=== PATIENT | female | born 1960 | race Caucasian/White ===

== ENCOUNTER 2021-03-20 08:28 | Day surgery (SDC) | payer OTHER, SELFPAY ==
[2021-03-13 14:29] VITALS: BMI 33.2
--- NOTE | 2021-03-19 09:26 | HO.ANESPROP2 ---
Documented by User: Ángela Salcido NP 03/19/21 09:26 HPI - Anesthesia Eval Consult details Narrative: 60yo F for Colonoscopy PMFSH Past Medical History Medical History HTN (hypertension) Surgical History Surgical History H/O colonoscopy History of carpal tunnel release Hx of laparoscopy Social History Social History Patient Tobacco Use Status: Former Tobacco user Use of substances other than those prescribed or required for medical reasons: No Advance Directives: No Advance Directives Information Provided: Yes (informational brochure mailed) Advance Directives on File: No Meds Allergies Allergy/AdvReac Type Severity Reaction Status Date / Time bee pollen [BEE STINGS] Allergy Intermediate SWELLING Verified 03/13/21 14:50 Home Medications Medication Instructions Recorded Confirmed Last Taken Type magnesium oxide 400 mg PO DAILY 03/13/21 03/13/21 Unknown History metoprolol tartrate 50 mg tablet 50 mg PO DAILY 03/13/21 03/13/21 03/20/21 History multivitamin 1 tab PO DAILY 03/13/21 03/13/21 Unknown History omeprazole 20 mg tablet,delayed 20 mg PO DAILY 03/13/21 03/13/21 03/20/21 History release potassium 75 mg tablet 75 mg PO DAILY 03/13/21 03/13/21 Unknown History turmeric 400 mg capsule 400 mg PO DAILY 03/13/21 03/13/21 Unknown History Exam Exam Date and Time: March 19, 2021 09 Height,Weight and Vital Signs: Height 5 ft 6.5 in Weight 94.801 kg Assessment and Plan Assessment Anesthesia Assessment: Chart Reviewed Documented by User: Michelle Arias MD 03/20/21 10:15 PMFSH Active Problems Active Problems: HTN GERD. Controlled on meds Past Medical History Medical History HTN (hypertension) Family History Family history of problems with anesthesia: No Surgical History Surgical History H/O colonoscopy History of carpal tunnel release Hx of laparoscopy History of Problems with Anesthesia: No Social History Social History Patient Tobacco Use Status: Former Tobacco user Use of substances other than those prescribed or required for medical reasons: No Advance Directives: No Advance Directives Information Provided: Yes (informational brochure mailed) Advance Directives on File: No Meds Allergies Allergy/AdvReac Type Severity Reaction Status Date / Time bee pollen [BEE STINGS] Allergy Intermediate SWELLING Verified 03/13/21 14:50 Home Medications Medication Instructions Recorded Confirmed Last Taken Type magnesium oxide 400 mg PO DAILY 03/13/21 03/13/21 Unknown History metoprolol tartrate 50 mg tablet 50 mg PO DAILY 03/13/21 03/13/21 03/20/21 History multivitamin 1 tab PO DAILY 03/13/21 03/13/21 Unknown History omeprazole 20 mg tablet,delayed 20 mg PO DAILY 03/13/21 03/13/21 03/20/21 History release potassium 75 mg tablet 75 mg PO DAILY 03/13/21 03/13/21 Unknown History turmeric 400 mg capsule 400 mg PO DAILY 03/13/21 03/13/21 Unknown History Exam Height,Weight and Vital Signs: Height 5 ft 6.5 in Weight 94.801 kg Vital Signs Temp Pulse Resp BP Pulse Ox 03/20/21 09:33 98.1 F 71 16 140/58 H 98 Airway Mallampati Class: I TM Dist: >3cm Neck ROM: Full Loose/Missing/Broken Teeth: No Heart: RRR Lungs: CTAB Assessment and Plan Assessment Anesthesia Assessment: Anesthesia Plan Discussed Final Anesthetic Review Family History of Problems with Anesthesia: No History of Problems with Anesthesia: No NPO: Yes ASA Class: II Final Preanesthetic Review: No Changes in Pt Med Stat, Meds/Allgs Chart Reviewed, Consent Obtained/Reviewed and Anes Risks/Benef Reviewed Patient Risk: Low Procedure Risk: Low Assessment/Block/Sedation in SS: Assess/Block/Sedation-SS Anesthetic Plan Anesthetic Plan: MAC: Disposition: Standard PACU
[2021-03-20 09:33] VITALS: BP 140/58; PULSE 71; RESP 16; TEMP 36.7; O2SAT 98
[2021-03-20] MEDS: Lactated Ringers 1,000 ML 100 ML IVCONT (09:34)
--- NOTE | 2021-03-20 10:07 | MHC.SHP ---
Pre-Procedural Eval Section A Date of Service: 03/20/21 The patient is an INPATIENT: No Changes since office visit: No Cold of Flu in the past 2 weeks, No New Medical Problems, No Changes in Medication and No Patient answered all questions The History & Physical has been completed within 30 days and I have reviewed it.: Yes Section B Chief Complaint: screening Allergies: Allergies Allergy/AdvReac Type Severity Reaction Status Date / Time bee pollen [BEE STINGS] Allergy Intermediate SWELLING Verified 03/13/21 14:50 Plan I have reviewed the history and physical and performed a pertinent physical examination on my patient. No changes have occurred unless specified.
--- NOTE | 2021-03-20 10:39 | PM.OP ---
Brief Operative Note Date of Service: 03/20/21 Pre-op diagnosis: screening Post-op diagnosis: same Procedure: colonoscpy Surgeon: Lauro Villatoro Anesthesia: MAC Estimated blood loss (mL): 0 Pathology: none sent Condition: stable Disposition: PACU
[2021-03-20 10:40] VITALS: BP 115/72; PULSE 79; RESP 16; TEMP 36.5; O2SAT 97
[2021-03-20 10:54] VITALS: BP 124/79; PULSE 79; RESP 16; TEMP 36.5; O2SAT 99
--- NOTE | 2021-03-20 21:09 | OP_ITS ---
SURGEON: Lauro Villatoro MD INDICATIONS: Colon cancer screening and prior history of adenomatous colon polyps. PREOPERATIVE DIAGNOSIS: POSTOPERATIVE DIAGNOSIS: PROCEDURE PERFORMED: Colonoscopy to terminal ileum. ESTIMATED BLOOD LOSS: COMPLICATIONS: ANESTHESIA: Monitored anesthesia care. ASSISTANTS: SPECIMENS: DESCRIPTION OF PROCEDURE: History and physical performed. The risks and benefits of the procedure were explained to the patient. Informed consent was obtained. The patient was placed in a left lateral decubitus position. A digital rectal exam was performed and was found to be normal. The Olympus pediatric video colonoscope was introduced into the rectum and advanced to the cecum without difficulty. The cecum was identified by transillumination, palpation, and identification of ileocecal valve. Examination was performed. The scope was removed. She tolerated the procedure well and was returned to recovery room in stable condition. FINDINGS: The terminal ileum was normal. The visualized colonic mucosa was within normal limits without evidence of masses or ulcers. No polyps were identified. The quality of prep was good. There was mild sigmoid diverticulosis. Retroflexed examination showed some small internal hemorrhoids and hypertrophic anal papillae. IMPRESSION: Negative screening colonoscopy. RECOMMENDATIONS: 1. Follow up as needed. 2. Repeat colonoscopy is recommended in 10 years. MD NUNO Rebolledo/DMITRY / [id number]
== END 2021-03-20 12:00 | disposition home or self-care (01) ==
PROVIDERS: PCP Nurse Practitioner Family; Visit Provider Internal Medicine Gastroenterology
PROC: 0DJD8ZZ Inspection of Lower Intestinal Tract, Via Natural or Artificial Opening Endoscopic (ICD-10-PCS; CPT 45378; principal; 2021-03-20 10:20)
DX: Z12.11 Encounter for screening for malignant neoplasm of colon (principal); Z86.010 Personal history of colon polyps; K57.30 Diverticulosis of large intestine without perforation or abscess without bleeding; K64.8 Other hemorrhoids; K62.89 Other specified diseases of anus and rectum; I10 Essential (primary) hypertension; Z79.899 Other long term (current) drug therapy; Z90.49 Acquired absence of other specified parts of digestive tract; Z87.891 Personal history of nicotine dependence
CPT/HCPCS: 45378

== ENCOUNTER 2023-11-08 09:11 | Outpatient (AMB) | payer OTHER, SELFPAY ==
--- NOTE | 2023-11-08 09:18 | A.OFFPC_ITS ---
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 c/o tomaseng bitten by a bee and she is allergic to it and would like to have the doctor take a look at it. she would also want refills on her meds and epi pen. 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: No Is last menstrual period known: No Post menopausal: No Patient : No Allergies bee pollen [BEE STINGS] Allergy (Intermediate, Verified 11/08/23 09:37) SWELLING Medication List - Last Reconciled 11/08/23 by Nataliya Aragon CNP glipizide 5 mg PO DAILY magnesium oxide 400 mg PO DAILY metformin 500 mg PO DAILY metoprolol tartrate 50 mg PO DAILY multivitamin 1 tab PO DAILY omega-3 fatty acids-fish oil 360-1,200 mg (Fish Oil) 1 cap PO DAILY omeprazole 20 mg PO DAILY potassium 75 mg PO DAILY turmeric 400 mg PO DAILY Tobacco use date assessed: 11/08/23 Dental Screening Dental Screen Date: 11/08/23 Did you have a dental visit in the last 12 months?: Yes Did you have a dental problem in the last 6 months where you did not have access to dental care?: No Was dental information given to patient?: Patient has dentist HPI HPI Comments History of Present Illness Details New patient Prior PCP:?Julissa Tao [facility], [place] Dr. Erica Fernandez Last office visit/CPE: About 4 months Last routine labs: Almost a year ago Acute issue(s): Hypertension -She is on metoprolol tartrate 50 mg michelle ly Diabetes -She is on glipizide 5 mg daily and metf ormin 500 mg daily GERD -She is on omeprazole 20 mg daily She notes that she takes Potassium 75mg daily and magnesium oxide 400mg daily for frequent lower leg cramps, left more frequent than right She admits to making healthy dietary changes, walks frequently for exercise, and generally sleeps well Last A1c was 6.4 in 01/2023 PMHx: Hypertension, diabetes, GERD, obesity, PVD SurgHx: h/o laparoscopy for endometriosis, h/o carpal tunnel release surgery FHx: None SocHx: Former smoker. Drinks alcohol occasionally. No recreational drugs Last colonoscopy was at [facility] on 03/20/2021: normal. Recommended follow-up in 10 years Last mammogram was at [facility] almost a year ago: normal. She will follow up for an annual mammogram She notes that she has never been vaccinated for shingles She received one PNA vaccine in 01/2023 She states that her last pap smear test was with [facility] chemical inspector in 08/2022: normal She notes that her last diabetic eye exam was almost 2 years ago She notes that she was followed by a vascular specialist for PVD about 3 years a go [facility] Medical History (Updated 11/08/23 @ 14:33 by Nataliya Aragon CNP) Diabetes HTN (hypertension) Surgical History Hx of laparoscopy History of carpal tunnel release H/O colonoscopy Family History (Updated 11/08/23 @ 09:46 by Mimi Mckeon) Daughter Alcohol abuse Substance abuse Mother High blood pressure Diabetes Cardiovascular disease Sister High cholesterol Paternal Grandfather Diabetes Father Cardiovascular disease Social History Housing: House Patient Tobacco Use Status: Former Tobacco user e-Cigarette/Vaping Use: Never Used Second Hand Smoke Exposure: No service: No Current occupational status: employed 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 Current occupational exposures/hazards: No Cognitive needs: No Hearing needs: No Vision needs: Yes Questionnaire PHQ-9 Over the last 2 weeks, how often have you been bothered by any of the following problems? 1. Little interest or pleasure in doing things: not at all 2. Feeling down, depressed, or hopeless: not at all 3. Trouble falling or staying asleep, or sleeping too much: several days 4. Feeling tired or having little energy: not at all 5. Poor appetite or overeating: not at all 6. Feeling bad about yourself - or that you are a failure or have let yourself or your family down: not at all 7. Trouble concentrating on things, such as reading the newspaper or watching television: not at all 8. Moving or speaking so slowly that other people could have noticed. Or the opposite - being so fidgety or restless that you have been moving around a lot more than usual: not at all 9. Thoughts that you would be better off or of hurting yourself in some way: not at all Total score: 1 Depression Screening Interpretation: Negative Depression Screening Done: Yes 49499 - PHQ-9 Billing: Yes Source: Developed by Drs. Danis Laguna, Nicole Mack, Asim De Jesus and colleagues, with an educational yenni from [employer]. Thrive Questionnaire Date Thrive assessed: 11/08/23 I am a: Patient What is your living situation today?: I have a steady place to live Within the past 12 months, did the food you bought not last and you didn't have the money to get more?: Never true Within the past 12 months, did you worry whether your food would run out before you got money to buy more?: Never true Do you have trouble paying for medicines?: No Do you have trouble getting transportation to medical appointments?: No Do you have trouble paying your heating and electricity bill?: No Do you have trouble taking care of your child, family member or friend?: No Do you have trouble with day-to-day activities such as bathing, preparing meals, shopping, managing finances, etc.?: No Are you currently unemployed and looking for a job?: No Are you interested in more education?: Yes (about diabetes) Please select the resources that you would like help with: Education (about diabetes) Currently or been in a relationship where the following occur: No concerns reported THRIVE Score: 0 AUDIT C Alcohol Use Questionnaire (AUDIT-C) 1. How often do you have a drink containing alcohol?: Monthly or less 2. How many drinks containing alcohol do you have on a typical day when you are drinking?: 1 or 2 3. How often do you have six or more drinks on one occasion?: Never Total Score: 1 JAYME-7 AMB Questionnaire JAYME-7 Date JAYME - 7 assessed: 11/08/23 Feeling nervous, anxious, or on edge: 0 = Not at all Not being able to stop or control worryin = Not at all Worrying too much about different things: 0 = Not at all Trouble relaxin = Not at all Being so restless that it is hard to sit still: 0 = Not at all Becoming easily annoyed or irritable: 0 = Not at all Feeling afraid as if something awful might happen: 0 = Not at all Total JAYME-7 score (0-4 normal; 5-9 mild; 10-14 moderate; 15-21 severe): 0 Source: Developed by Drs. Danis Laguna, Nicole Mack, Asim De Jesus and colleagues, with an educational yenni from [employer]. JAYME-7 Assessment Billing JAYME-7 Assessment Tool: JAYME-7 Assessment 21195 Review of Systems Const Details: Denies chills, Denies fatigue, Denies fever(s), Denies headache(s) and Denies weakness HEENT Denies change in vision, Denies dizziness, Denies headache(s), Denies hearing loss, Denies nasal congestion, Denies sinus pain, Denies sinus pressure and Denies sore throat Card Denies chest pain, Denies lightheadedness, Denies dyspnea and Denies other (palpitations) Resp Denies cough, Denies dyspnea and Denies wheezing GI Denies abdominal pain, Denies melena, Denies hematochezia, Denies change in bowel habits, Denies dyspepsia and Denies nausea Denies hematuria and Denies dysuria Musc Denies abnormal gait, Denies myalgias, Denies arthralgias, Denies numbness and Denies tingling Skin/Breast Denies rash, Denies unusual bruising and Denies wounds Neuro Denies abnormal gait, Denies dizziness, Denies headache(s), Denies memory loss, Denies numbness, Denies Sensory deficit (Neuro), Denies tingling and Denies weakness Psych Denies anxiety, Denies depression and Denies memory loss Endo Denies cold intolerance, Denies fatigue, Denies heat intolerance, Denies polydipsia and Denies polyuria Bruce/Lymph Denies easy bleeding and Denies easy bruising Aller/Immun Denies wheezing Physical exam (Primary Care) Vital Signs: Last Vital Signs Temp 97.7 F 11/08/23 09:33 Pulse 73 11/08/23 09:33 Resp 16 11/08/23 09:33 BP 128/78 11/08/23 09:33 Pulse Ox 95 11/08/23 09:33 Oxygen Delivery Method Room Air 11/08/23 09:33 BMI result Body Mass Index 37.5 Tobacco/Smoking Status: Tobacco use Status Tobacco use date assessed 11/08/23 11/08/23 09:33 Patient Tobacco Use Status Former Tobacco user 11/08/23 09:20 e-Cigarette/Vaping Use Never Used 11/08/23 09:33 PHQ-9: PHQ-9 Score PHQ-9: Total score 1 11/08/23 09:44 Depression Screening Interpretation: Negative Thrive Assessment: Date of Thrive Assessment Date Thrive assessed 11/08/23 11/08/23 09:40 Currently or been in a relationship where the following occur: No concerns reported Const Other: General: no acute distress, well developed, alert and awake Nutritional Appearance: well nourished Orientation/consciousness: patient oriented x3 HENMT Head: Yes normocephalic and Yes atraumatic Ears: hearing grossly normal bilaterally and TM's normal bilaterally General nose exam: Normal external nose present and Normal nares present Mouth: Normal oral and palatal mucosa present and moist mucous membranes Teeth and gingiva: dentition normal Throat: Yes oropharynx normal Eyes Pupils: Equal, round and reactive pupils present and Pupil accommodation reflex normal EOM: EOMs intact bilaterally Neck Neck: Yes normal visual inspection, Yes no lymphadenopathy and Yes trachea midline Thyroid: Thyroid normal Carotids: no bruits Lymphatic: no lymphadenopathy noted Chest Chest palpation & inspection: normal inspection of the chest Resp Effort & Inspection: normal respiratory effort Auscultation: clear to auscultation bilaterally Cardio Rate: regular rate Rhythm: regular rhythm Heart sounds: S1 normal heart sound present, S2 normal heart sound present, no gallops, no murmurs and no rubs Bruits: no abdominal aortic bruits and no carotid bruits GI Palpation (GI): No Abdominal aortic bruit present, Soft to palpation, nontender, No hepatosplenomegaly present and No Rebound tenderness present Auscultation: normal bowel sounds General: Yes no CVA tenderness Back/Spine/Pelvis Back: no CVA tenderness Cervical Spine: cervical ROM normal and No Cervical spine tenderness Thoracic/Lumbar Spine: thoraco-lumbar ROM normal, No pain with thoraco-lumbar ROM, No thoracic spinal tenderness and No lumbar spinal tenderness Skin General: warm and dry. Normal skin color. Normal skin turgor Lesions: no lesions Rashes: no rashes Trauma: no lacerations or abrasions Wounds: no wounds Nails: normal Neuro General: patient oriented x3, gait normal and CN's II-XI intact bilaterally Cranial nerves: Yes Equal, round and reactive pupils present Cognition (Neuro): normal cognition Gait exam (Neuro): Normal gait present Motor exam (neuro): 5/5 motor strength present throughout Sensory Exam: No Sensory deficit (Neuro) Deep tendon reflexes (DTR's): Right patellar reflex intensity grade: 2+ and Left patellar reflex intensity grade: 2+ Extrem General: Yes normal to inspection, No edema and No calf tenderness Psych Appearance: grossly normal Affect: normal affect Attitude: cooperative Thought process: Normal thought process present Results AMB Hemoglobin A1c AMB Hemoglobin A1c 8.0 % Last Edit by Mimi Mckeon on 11/08/23 12:44 Results Reviewed Results Reviewed: Laboratory Last Values Hgb A1c (Clinic) 8.0 % (4.0-6.0) H 11/08/23 12:15 Assessment and Plan Assessment & Plan (1) Normal physical examination, routine: Code(s): Z00.00 - Encounter for general adult medical examination without abnormal findings Plan: No significant physical restrictions or limitations noted Continue current treatment regimen Healthy diet and routine exercise encouraged Advised to get lab work before her next visit Follow-up in 1 month for hypertension and labs review or sooner with symptoms or concerns Verbalized understanding and agreed with treatment plan (2) HTN (hypertension): Code(s): I10 - Essential (primary) hypertension Plan: Blood pressure today 128/78, within goal of less than 130/80 Continue to take metoprolol as prescribed Low sodium diet encouraged Follow up in 3 months Verbalized understanding and agreed with the plan (3) Diabetes: Code(s): E11.9 - Type 2 diabetes mellitus without complications Plan: A1c today is 8.0%, above goal of less than 7.0%. Previous A1c in 02/18/2023 was 6.4% Will increase metformin to 500 mg twice daily. Advised to take as prescribed Continue to take glipizide 5 mg daily ADA diet and routine exercise encouraged Will recheck A1c in 3 months Last diabetic eye exam was almost 2 years ago. Will refer to Ophthalmology Verbalized understanding and agreed with the plan (4) Bilateral leg cramps: Code(s): R25.2 - Cramp and spasm Plan: Chronic bilateral lower leg cramps, left more frequent than right May continue to take magnesium Will check magnesium level Encouraged to avoid taking daily potassium to minimize risk of elevated potassium levels Stretching and massage encouraged Follow-up with worsening or new symptoms Verbalized understanding and agreed with the treatment plan (5) GERD (gastroesophageal reflux disease): Code(s): K21.9 - Gastro-esophageal reflux disease without esophagitis Plan: Stable Continue current treatment regimen (6) Vaccine counseling: Code(s): Z71.85 - Encounter for immunization safety counseling Plan: She has never been vaccinated for shingles. She received 1 pneumonia vaccine in 01/2023 Instructed on importance of vaccination and encouraged to get vaccinated for shingles and pneumonia. She may get the vaccines from her local pharmacy Verbalized understanding and agreed with the plan (7) PVD (peripheral vascular disease): Code(s): I73.9 - Peripheral vascular disease, unspecified Plan: No acute symptoms Was followed by a vascular specialist about 3 years ago (8) Obesity (BMI 30-39.9): Code(s): E66.9 - Obesity, unspecified Plan: She currently weighs 225 lb, BMI is 37.5 She has been making healthy dietary changes and exercising Healthy diet and routine exercise encouraged May referred to a dietitian or weight management as needed Verbalized understanding and agreed with the plan (9) Laboratory tests ordered as part of a complete physical exam (CPE): Code(s): Z00.00 - Encounter for general adult medical examination without abnormal findings Plan: Fasting labs ordered as part of a complete physical exam. Advised to fast for at least 10 hours before getting labs drawn. May drink water Verbalized understanding and agreed with treatment plan. Orders: Orders Complete Blood Count Auto Diff Today Z00.00 - Encounter for general adult medical examination without abnormal findings Comprehensive [place]. Panel Fast Today Z00.00 - Encounter for general adult medical examination without abnormal findings UA CC w/rflx Micro + Cult Today Z00.00 - Encounter for general adult medical examination without abnormal findings Microalbumin, Random (w Creat) Today Z00.00 - Encounter for general adult medical examination without abnormal findings AMB Hemoglobin A1c Today Z13.9 - Encounter for screening, unspecified Lipid Panel Today Z00.00 - Encounter for general adult medical examination without abnormal findings TSH reflex Free T4 Today Z00.00 - Encounter for general adult medical examination without abnormal findings Referrals Ophthalmology Referral E11.9 - Type 2 diabetes mellitus without complications Medications: New metformin 500 mg PO BID 30 days 60 tabs 3RF glipizide 5 mg PO DAILY 30 days 30 tabs 3RF Changed From metoprolol tartrate 50 mg PO DAILY To metoprolol tartrate 50 mg PO DAILY 30 days 30 tabs 3RF Coding Level of Care Code Est Pt Level 4 (75391) Est Pt Prev Care 40-64y(73910) Diagnoses Normal physical examination, routine Z00.00 HTN (hypertension) I10 Diabetes E11.9 Bilateral leg cramps R25.2 GERD (gastroesophageal reflux disease) K21.9 Vaccine counseling Z71.85 PVD (peripheral vascular disease) I73.9 Obesity (BMI 30-39.9) E66.9 Laboratory tests ordered as part of a complete physical exam (CPE) Z00.00 Additional Codes JAYME-7 Assessment Billing - JAYME-7 Assessment Tool: JAYME-7 Assessment 97147 ([id number])
[2023-11-08 09:33] VITALS: BP 128/78; PULSE 73; RESP 16; TEMP 36.5; O2SAT 95; BMI 37.5
== END 2023-11-08 10:29 | disposition home or self-care (01) ==
PROVIDERS: Visit Provider Nurse Practitioner Family
DX: Z00.00 Encounter for general adult medical examination without abnormal findings (principal); E11.51 Type 2 diabetes mellitus with diabetic peripheral angiopathy without gangrene; I73.9 Peripheral vascular disease, unspecified; I10 Essential (primary) hypertension; R25.2 Cramp and spasm; K21.9 Gastro-esophageal reflux disease without esophagitis; Z71.85 Encounter for immunization safety counseling; E66.9 Obesity, unspecified
CPT/HCPCS: 83036; 99214; 99396

== ENCOUNTER 2023-12-17 06:37 | Outpatient (REF) | payer OTHER, SELFPAY ==
[2023-12-17 11:04] LABS: MANUAL DIFF FLAG NO
[2023-12-17 11:11] LABS: Appearance Urine Cloudy; Color Urine Yellow; Glucose Urine UA Negative (Negative); Leukocyte Esterase Urine Trace (Negative); Nitrite Urine Negative (Negative); UMIC TRIGGER UACC YES; Urine Blood Negative (Negative); Urine Ketones Negative (Negative); Urine Protein Negative (Neg-Trace)
[2023-12-17 11:12] LABS: Basophils Absolute Auto 0.1 X10*3/uL (0.0-0.2); Eosinophils Absolute Auto 0.3 X10*3/uL (0.0-0.4); Eosinophils Percent Auto 5.4 % (0-4); Hematocrit 38.9 % (37.0-47.0); Hemoglobin 13.1 g/dl (12.0-16.0); Imm Gran Abs Auto 0.02 X10*3/uL (0.00-0.03); Imm Gran Pct Auto 0.3 % (0.0-0.4); Lymphocytes Absolute Auto 1.1 X10*3/uL (1.2-4.9); Mean Corpuscular HGB Conc 33.7 g/dl (31.0-35.0); Mean Corpuscular Hemoglobin 30.3 pg (27.0-33.0); Mean Corpuscular Volume 89.8 fL (80.0-98.0); Mean Platelet Volume 10.9 fL (9.4-12.3); Monocytes Absolute Auto 0.6 X10*3/uL (0.1-1.2); Monocytes Percent Auto 8.7 % (2-11); Neutrophils Absolute Auto 4.2 x10*3/uL (2.0-8.3); Neutrophils Percent Auto 66.6 % (45-73); Platelet Count 221 X10*3/uL (160-400); Red Blood Count 4.33 X10*6/uL (4.20-5.50); Red Cell Distribution Width 12.6 % (11.0-16.0); White Blood Count 6.3 X10*3/uL (4.8-10.8)
[2023-12-17 11:15] LABS: Bacteria Urine None Seen (None Seen); Hyaline Casts Urine 0-2 /LPF (0-2); RBC Urine 0-2 /HPF (0-2); Squamous Epithelial Cell Urine 0-2 /HPF (0-2); WBC Urine 0-5 /HPF (0-5)
[2023-12-17 11:32] LABS: Alanine Aminotransferase 25 U/L (0-31); Albumin Level 4.2 g/dL (3.5-5.0); Alkaline Phosphatase 119 U/L (39-117); Anion Gap 11 (12-20); Aspartate Amino Transferase 19 U/L (5-31); Bilirubin Total 0.3 mg/dL (0.0-1.0); Blood Urea Nitrogen 19 mg/dL (9-16); Calcium 9.5 mg/dL (8.4-10.2); Carbon Dioxide 28 mmol/L (22-29); Chloride 104 mmol/L (96-108); Cholesterol 172 mg/dL (<200); Estimated Glomerular Filt Rate > 60; Glucose Fasting 162 mg/dL (60-99); HDL Cholesterol 54 mg/dL (>40); LDL Cholesterol Calculated 102 mg/dL (<100); Potassium 4.3 mmol/L (3.3-5.1); Sodium 139 mmol/L (135-145); Triglycerides 81 mg/dL (<150)
[2023-12-17 11:41] LABS: TSH reflex Free T4 1.81 uIU/mL (0.32-4.0)
[2023-12-17 11:43] LABS: Microalbumin Urine < 5.0 mg/L
== END 2023-12-17 06:38 | disposition home or self-care (01) ==
LOC: HO.HMGCLDS 06:37
PROVIDERS: PCP Nurse Practitioner Family; Visit Provider Nurse Practitioner Family
DX: Z00.00 Encounter for general adult medical examination without abnormal findings (principal)
CPT/HCPCS: 36415; 80053; 80061; 81001; 82570; 84443; 85025

== ENCOUNTER 2023-12-23 10:15 | Outpatient (AMB) | payer OTHER, SELFPAY ==
--- NOTE | 2023-12-23 10:19 | A.OFFPC_ITS ---
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 Is last menstrual period known: No Post menopausal: No Patient : No Allergies bee pollen [BEE STINGS] Allergy (Intermediate, Verified 12/23/23 10:41) SWELLING Medication List - Last Reconciled 12/23/23 by Nataliya Aragon CNP blood sugar diagnostic ([employer] Ultra Test strips) As directed TID epinephrine (EpiPen 2-Maciej) 0.3 mg (0.3 mL) IM Q4H PRN glipizide ER 5 mg PO DAILY 30 days magnesium oxide 400 mg PO DAILY metformin 500 mg PO BIDWMEAL 30 days metoprolol succinate ER 50 mg PO DAILY 30 days multivitamin 1 tab PO DAILY omega-3 fatty acids-fish oil 360-1,200 mg (Fish Oil) 1 cap PO DAILY omeprazole 20 mg PO DAILY turmeric 400 mg PO DAILY Tobacco use date assessed: 12/23/23 Dental Screening Dental Screen Date: 11/08/23 HPI HPI Comments History of Present Illness Details 63-year-old female presents for hyperten jh and recent labs review follow-up She admits to taking her medications as prescribed without adverse reactions She notes that she has been making healthy lifestyle changes but has not been able to lose weight. She requests medication treatment for weight management She continues to experience intermittent bilateral leg cramps No acute symptoms at this time [facility] Medical History (Updated 12/23/23 @ 10:43 by Nataliya Aragon CNP) Diabetes HTN (hypertension) Surgical History Hx of laparoscopy History of carpal tunnel release H/O colonoscopy Family History (Updated 11/08/23 @ 09:46 by Mimi Mckeon) Daughter Alcohol abuse Substance abuse Mother High blood pressure Diabetes Cardiovascular disease Sister High cholesterol Paternal Grandfather Diabetes Father Cardiovascular disease Social History Housing: House Patient Tobacco Use Status: Former Tobacco user e-Cigarette/Vaping Use: Never Used Second Hand Smoke Exposure: No service: No Current occupational status: employed 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 Current occupational exposures/hazards: No Cognitive needs: No Hearing needs: No Vision needs: Yes Questionnaire Thrive Questionnaire Date Thrive assessed: 11/08/23 JAYME-7 AMB Questionnaire JAYME-7 Date JAYME - 7 assessed: 11/08/23 Source: Developed by Drs. Danis Laguna, Nicole Mack, Asim De Jesus and colleagues, with an educational yenni from [employer]. Review of Systems Const Details: Const Denies chills, Denies fatigue, Denies fever(s), Denies headache(s) and Denies weakness ENT Denies dizziness and Denies headache(s) Card Denies chest pain, Denies lightheadedness, Denies dyspnea and Denies other (Palpitations) Resp Denies cough, Denies dyspnea, Denies wheezing and Denies other ( shortness of breath) GI Denies abdominal pain, Denies melena, Denies hematochezia, Denies change in bowel habits, Denies dyspepsia and Denies nausea Denies hematuria and Denies dysuria Musc Denies abnormal gait, Denies myalgias, Denies arthralgias, Denies numbness and Denies tingling Skin/Breast Denies rash, Denies unusual bruising and Denies wounds Neuro Denies abnormal gait, Denies dizziness, Denies headache(s), Denies memory loss, Denies numbness, Denies Sensory deficit (Neuro), Denies tingling and Denies weakness Psych Denies anxiety, Denies depression, Denies memory loss Endo Denies cold intolerance, Denies fatigue, Denies heat intolerance, Denies polydipsia and Denies polyuria Aller/Immun Denies wheezing Physical exam (Primary Care) Vital Signs: Last Vital Signs Temp 98.2 F 12/23/23 10:24 Pulse 69 12/23/23 10:24 Resp 16 12/23/23 10:24 BP 128/80 12/23/23 10:24 Pulse Ox 97 12/23/23 10:24 Oxygen Delivery Method Room Air 12/23/23 10:24 BMI result Body Mass Index 36.8 Tobacco/Smoking Status: Tobacco use Status Tobacco use date assessed 12/23/23 12/23/23 10:27 Patient Tobacco Use Status Former Tobacco user 12/23/23 10:19 e-Cigarette/Vaping Use Never Used 12/23/23 10:19 Thrive Assessment: Date of Thrive Assessment Date Thrive assessed 11/08/23 12/23/23 10:19 Const Other: General: no acute distress and well developed Nutritional Appearance: well nourished Orientation/consciousness: patient oriented x3 HENMT Head: Yes normocephalic and Yes atraumatic Eyes General: appearance normal, both eyes and all related structures Pupils: Equal, round and reactive pupils present EOM: EOMs intact bilaterally Resp Effort & Inspection: normal respiratory effort Auscultation: clear to auscultation bilaterally Cardio Rate: regular rate Rhythm: regular rhythm Heart sounds: S1 normal heart sound present, S2 normal heart sound present, no gallops, no murmurs and no rubs GI Palpation (GI): No Abdominal aortic bruit present, Soft to palpation, nontender, No hepatosplenomegaly present and No Rebound tenderness present Auscultation: normal bowel sounds General: Yes no CVA tenderness Back/Spine/Pelvis Back: no CVA tenderness Cervical Spine: cervical ROM normal and No Cervical spine tenderness Thoracic/Lumbar Spine: thoraco-lumbar ROM normal, No pain with thoraco-lumbar ROM, No thoracic spinal tenderness and No lumbar spinal tenderness Extrem General: Yes normal to inspection, No edema and No calf tenderness Skin General: warm and dry. Normal skin color. Normal skin turgor Neuro General: patient oriented x3, gait normal and no focal neuro deficit Cranial nerves: Yes Equal, round and reactive pupils present Cognition (Neuro): normal cognition Gait exam (Neuro): Normal gait present Sensory Exam: No Sensory deficit (Neuro) Psych Appearance: grossly normal Affect: normal affect Attitude: cooperative Thought process: Normal thought process present Assessment and Plan Assessment & Plan (1) HTN (hypertension): Code(s): I10 - Essential (primary) hypertension Plan: Blood pressure is 128/80, slightly above goal of less than 130/80 Continue current treatment regimen Low-sodium diet encouraged Follow-up in 7 weeks for hypertension and diabetes or return sooner with symptoms or concerns Verbalized understanding and agreed with the treatment plan (2) Elevated LDL cholesterol level: Code(s): E78.00 - Pure hypercholesterolemia, unspecified Plan: Recent labs reviewed with the patient; unremarkable findings except for slightly elevated LDL level, 102; LDL goal is less than 100 Advised to limit foods high in saturated fat and avoid foods high in trans fat Routine exercise encouraged Will check lipid panel level periodically Verbalized understanding and agreed with the treatment plan (3) Bilateral leg cramps: Code(s): R25.2 - Cramp and spasm Plan: Intermittent bilateral leg cramps Recent potassium level is normal She is on magnesium oxide 400mg daily Will check magnesium level and recheck potassium level. Will make changes as needed Stretching and massage encouraged Follow-up with worsening or new symptoms Verbalized understanding and agreed with the treatment plan (4) Obesity (BMI 30-39.9): Code(s): E66.9 - Obesity, unspecified Plan: She has not been able to lose weight despite making healthy lifestyle changes She currently weighs 221 lb, BMI is 36.8 Will trial Wellbutrin 150 mg daily. Advised to take as prescribed. Instructed on the risks, benefits, and potential adverse reactions of the medications Healthy diet and routine exercise encouraged Verbalized understanding and agreed with the plan Orders: Orders Potassium Today R25.2 - Cramp and spasm Magnesium Today R25.2 - Cramp and spasm Medications: New bupropion HCl XL (Wellbutrin XL) 150 mg PO QAM 30 days 30 tabs 3RF Coding Level of Care Code Est Pt Level 4 (48666) Complex EM visit Add On G2211 Diagnoses HTN (hypertension) I10 Elevated LDL cholesterol level E78.00 Bilateral leg cramps R25.2 Obesity (BMI 30-39.9) E66.9
[2023-12-23 10:24] VITALS: BP 128/80; PULSE 69; RESP 16; TEMP 36.8; O2SAT 97; BMI 36.8
== END 2023-12-23 11:01 | disposition home or self-care (01) ==
PROVIDERS: Visit Provider Nurse Practitioner Family
DX: I10 Essential (primary) hypertension (principal); E78.00 Pure hypercholesterolemia, unspecified; E66.9 Obesity, unspecified; Z68.36 Body mass index [BMI] 36.0-36.9, adult; R25.2 Cramp and spasm
CPT/HCPCS: 99214; G2211

== ENCOUNTER 2023-12-23 11:07 | Outpatient (REF) | payer OTHER, SELFPAY ==
[2023-12-23 14:31] LABS: Appearance Urine Clear; Color Urine Yellow; Glucose Urine UA Negative (Negative); Leukocyte Esterase Urine Negative (Negative); Nitrite Urine Negative (Negative); PH 7.5 (5.0-9.0); Urine Blood Negative (Negative); Urine Ketones Negative (Negative); Urine Protein Negative (Neg-Trace)
[2023-12-23 15:01] LABS: Magnesium 2.2 mg/dL (1.6-2.6); Potassium 4.5 mmol/L (3.3-5.1)
== END 2023-12-23 11:08 | disposition home or self-care (01) ==
LOC: HO.WFDLDS 11:07
PROVIDERS: Visit Provider Nurse Practitioner Family
DX: Z00.00 Encounter for general adult medical examination without abnormal findings (principal); R25.2 Cramp and spasm
CPT/HCPCS: 36415; 81003; 83735; 84132

== ENCOUNTER 2024-02-13 11:31 | Outpatient (AMB) | payer OTHER, SELFPAY ==
--- NOTE | 2024-02-13 11:33 | MHC.PC.OV ---
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 Is last menstrual period known: No Post menopausal: No Patient : No Allergies bee pollen [BEE STINGS] Allergy (Intermediate, Verified 02/13/24 11:52) SWELLING Medication List - Last Reconciled 02/13/24 by Nataliya Aragon CNP blood sugar diagnostic ([employer] Ultra Test strips) As directed TID bupropion HCl XL (Wellbutrin XL) 150 mg PO QAM 30 days epinephrine (EpiPen 2-Maciej) 0.3 mg (0.3 mL) IM Q4H PRN glipizide ER 5 mg PO DAILY 30 days magnesium oxide 400 mg PO DAILY metformin 500 mg PO BIDWMEAL 30 days metoprolol succinate ER 50 mg PO DAILY 30 days multivitamin 1 tab PO DAILY omega-3 fatty acids-fish oil 360-1,200 mg (Fish Oil) 1 cap PO DAILY omeprazole 20 mg PO DAILY turmeric 400 mg PO DAILY Tobacco use date assessed: 02/13/24 Dental Screening Dental Screen Date: 02/13/24 Did you have a dental visit in the last 12 months?: Yes Did you have a dental problem in the last 6 months where you did not have access to dental care?: No Was dental information given to patient?: Patient has dentist HPI HPI Comments History of Present Illness Details 63-year-old female presents for hypertension and diabetes follow-up She admits to taking her medications as prescribed without adverse reactions She has been making healthy lifestyle changes She offers no complaints and denies acute symptoms at this time [facility] Medical History (Updated 02/13/24 @ 12:15 by Nataliya Aragon CNP) Diabetes HTN (hypertension) Surgical History Hx of laparoscopy History of carpal tunnel release H/O colonoscopy Family History (Updated 11/08/23 @ 09:46 by Mimi Mkceon MA) Daughter Alcohol abuse Substance abuse Mother High blood pressure Diabetes Cardiovascular disease Sister High cholesterol Paternal Grandfather Diabetes Father Cardiovascular disease Social History Housing: House Patient Tobacco Use Status: Former Tobacco user e-Cigarette/Vaping Use: Never Used Second Hand Smoke Exposure: No service: No Current occupational status: employed 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 Current occupational exposures/hazards: No Cognitive needs: No Hearing needs: No Vision needs: Yes Questionnaire PHQ-9 Over the last 2 weeks, how often have you been bothered by any of the following problems? 1. Little interest or pleasure in doing things: not at all 2. Feeling down, depressed, or hopeless: not at all 3. Trouble falling or staying asleep, or sleeping too much: several days 4. Feeling tired or having little energy: several days 5. Poor appetite or overeating: not at all 6. Feeling bad about yourself - or that you are a failure or have let yourself or your family down: not at all 7. Trouble concentrating on things, such as reading the newspaper or watching television: not at all 8. Moving or speaking so slowly that other people could have noticed. Or the opposite - being so fidgety or restless that you have been moving around a lot more than usual: not at all 9. Thoughts that you would be better off or of hurting yourself in some way: not at all Total score: 2 Depression Screening Done: Yes Source: Developed by Drs. Danis Laguna, Nicole Mack, Asim De Jesus and colleagues, with an educational yenni from [employer]. Thrive Questionnaire Date Thrive assessed: 11/08/23 JAYME-7 AMB Questionnaire JAYME-7 Date JAYME - 7 assessed: 11/08/23 Source: Developed by Drs. Danis Laguna, Nicole Mack, Asim De Jesus and colleagues, with an educational yenni from [employer]. Review of Systems Const Details: Const Denies chills, Denies fatigue, Denies fever(s), Denies headache(s) and Denies weakness ENT Denies dizziness and Denies headache(s) Card Denies chest pain, Denies lightheadedness, Denies dyspnea and Denies other (Palpitations) Resp Denies cough, Denies dyspnea, Denies wheezing and Denies other ( shortness of breath) GI Denies abdominal pain, Denies melena, Denies hematochezia, Denies change in bowel habits, Denies dyspepsia and Denies nausea Denies hematuria and Denies dysuria Musc Denies abnormal gait, Denies myalgias, Denies arthralgias, Denies numbness and Denies tingling Skin/Breast Denies rash, Denies unusual bruising and Denies wounds Neuro Denies abnormal gait, Denies dizziness, Denies headache(s), Denies memory loss, Denies numbness, Denies Sensory deficit (Neuro), Denies tingling and Denies weakness Psych Denies anxiety, Denies depression, Denies memory loss Endo Denies cold intolerance, Denies fatigue, Denies heat intolerance, Denies polydipsia and Denies polyuria Aller/Immun Denies wheezing Physical exam (Primary Care) Tobacco/Smoking Status: Tobacco use Status Tobacco use date assessed 12/23/23 02/13/24 11:34 Patient Tobacco Use Status Former Tobacco user 02/13/24 11:34 e-Cigarette/Vaping Use Never Used 02/13/24 11:34 Thrive Assessment: Date of Thrive Assessment Date Thrive assessed 11/08/23 02/13/24 11:34 Const Other: General: no acute distress and well developed Nutritional Appearance: well nourished Orientation/consciousness: patient oriented x3 HENMT Head: Yes normocephalic and Yes atraumatic Eyes General: appearance normal, both eyes and all related structures Pupils: Equal, round and reactive pupils present EOM: EOMs intact bilaterally Resp Effort & Inspection: normal respiratory effort Auscultation: clear to auscultation bilaterally Cardio Rate: regular rate Rhythm: regular rhythm Heart sounds: S1 normal heart sound present, S2 normal heart sound present, no gallops, no murmurs and no rubs GI Palpation (GI): No Abdominal aortic bruit present, Soft to palpation, nontender, No hepatosplenomegaly present and No Rebound tenderness present Auscultation: normal bowel sounds General: Yes no CVA tenderness Back/Spine/Pelvis Back: no CVA tenderness Cervical Spine: cervical ROM normal and No Cervical spine tenderness Thoracic/Lumbar Spine: thoraco-lumbar ROM normal, No pain with thoraco-lumbar ROM, No thoracic spinal tenderness and No lumbar spinal tenderness Extrem General: Yes normal to inspection, No edema and No calf tenderness Skin General: warm and dry. Normal skin color. Normal skin turgor Neuro General: patient oriented x3, gait normal and no focal neuro deficit Cranial nerves: Yes Equal, round and reactive pupils present Cognition (Neuro): normal cognition Gait exam (Neuro): Normal gait present Sensory Exam: No Sensory deficit (Neuro) Psych Appearance: grossly normal Affect: normal affect Attitude: cooperative Thought process: Normal thought process present Results AMB Hemoglobin A1c AMB Hemoglobin A1c 7.3 % Last Edit by Mimi Mckeon MA on 02/13/24 11:49 Coding Level of Care Code Est Pt Level 4 (04056) Diagnoses HTN (hypertension) I10 Diabetes E11.9 Encounter for weight management Z76.89 Assessment & Plan Assessment & Plan (1) HTN (hypertension): Code(s): I10 - Essential (primary) hypertension Category: Medical Plan: Blood pressure is 122/78, within goal of less than 130/80 Continue current treatment regimen Low-sodium diet encouraged Follow-up in 3 months or sooner with symptoms or concerns Verbalized understanding and agreed with the plan (2) Diabetes: Code(s): E11.9 - Type 2 diabetes mellitus without complications Category: Medical Plan: A1c today is 7.3%, slightly above goal of less than 7.0%. Previous A1c was 8.0% Continue current treatment regimen ADA diet and routine exercise encouraged Will recheck A1c in 3 months Verbalized understanding and agreed with the plan (3) Encounter for weight management: Code(s): Z76.89 - Persons encountering health services in other specified circumstances Category: Medical Plan: She has not lose weight since she started taking bupropion in November. She wants to try Contrave Will discontinue bupropion at this time Her blood pressure is controlled. She denies eating disorder or chronic opioid use. She is not on MAO inhibitors Will start Contrave. Advised to take as prescribed. Instructed on the risks, benefits, and potential adverse reactions of the medication Follow-up in 3 months or sooner with worsening or new symptoms Verbalized understanding and agreed with the treatment plan Orders: Orders AMB Hemoglobin A1c Today Z13.9 - Encounter for screening, unspecified Medications: New naltrexone-bupropion 8-90 mg Week 1: 1 tablet daily; week 2: 1 tablet twice daily: Week 3: 2 tablets in the morning and 1 tablet in the evening: Week 4: 2 tablets twice daily No more than 4 tablets daily 1 tab PO QAM 70 tabs 0RF Discontinued bupropion HCl XL (Wellbutrin XL) Discontinued Reason: Doctor's Order 150 mg PO QAM 30 days 30 tabs 3RF
[2024-02-13 11:44] VITALS: BP 122/78; PULSE 65; RESP 16; TEMP 36.6; O2SAT 99; BMI 36.8
== END 2024-02-13 12:18 | disposition home or self-care (01) ==
PROVIDERS: PCP Nurse Practitioner Family; Visit Provider Nurse Practitioner Family
DX: I10 Essential (primary) hypertension (principal); E11.9 Type 2 diabetes mellitus without complications; Z76.89 Persons encountering health services in other specified circumstances; Z13.9 Encounter for screening, unspecified

== ENCOUNTER → 2024-02-13 11:31 | Outpatient (BNVA) | payer OTHER, SELFPAY | PROVIDERS: PCP Nurse Practitioner Family; Visit Provider Nurse Practitioner Family | DX: I10 Essential (primary) hypertension (principal); E11.9 Type 2 diabetes mellitus without complications; Z76.89 Persons encountering health services in other specified circumstances | CPT/HCPCS: 83036; 99212 ==

== ENCOUNTER 2024-03-12 10:14 | Outpatient (AMB) | payer OTHER, SELFPAY ==
[2024-03-12 10:41] VITALS: BMI 36.9
--- NOTE | 2024-03-12 10:41 | MHC.AMNUTRGE ---
VS Expanded 03/12/24 10:41 03/12/24 10:50 Height 5 ft 5 in 5 ft 5 in Weight 221 lb 9.033 oz 221 lb BMI 36.9 36.8 Intake Visit Reasons: Obesity Allergies bee pollen [BEE STINGS] Allergy (Intermediate, Verified 02/13/24 11:52) SWELLING Nutrition Presentation Details: Pt presents for MNT for T2DM food frequency fruits: 0-1/d vegetables 3x/d fish not including dairy 2-3 x/d starches > 20 Pt reports having 3 meals /day Sand egg/ham in AM ,water lunch: lately including legume salad, water D: late varies fast food, pasta/poultry/veg, water snack 2-3 /day BS Monitoring Most Recent Diabetes Results: Microalb/Creat Ratio TNP 12/17/23 Cholesterol 172 mg/dL (<200) 12/17/23 HDL Cholesterol 54 mg/dL (>40) 12/17/23 Triglycerides 81 mg/dL (<150) 12/17/23 Creatinine 0.85 mg/dL (0.5-1.4) 12/17/23 Blood Urea Nitrogen 19 mg/dL (9-16) H 12/17/23 Sodium 139 mmol/L (135-145) 12/17/23 Potassium 4.5 mmol/L (3.3-5.1) 12/23/23 Chloride 104 mmol/L (96-108) 12/17/23 Carbon Dioxide 28 mmol/L (22-29) 12/17/23 Calcium 9.5 mg/dL (8.4-10.2) 12/17/23 AST 19 U/L (5-31) 12/17/23 ALT 25 U/L (0-31) 12/17/23 Total Protein 7.0 g/dL (6.5-8.0) 12/17/23 Albumin 4.2 g/dL (3.5-5.0) 12/17/23 SYL-Hjpjeuc-Ff.Jeor Equation Height: 5 ft 5 in Weight: 221 lb Resting Metabolic Rate: 1572.19 Calculated Activity Level: Sedentary Calories Needed to Maintain Weight: 1886.63 Diagnosis Nutrition problem #1: food nutri know defi As related to (etiology) #1: diagnosis As evidenced by (sign/symptom) #1: knowledge deficit of diet [facility] Medical History (Updated 02/13/24 @ 12:15 by Nataliya Aragon CNP) Diabetes HTN (hypertension) Surgical History Hx of laparoscopy History of carpal tunnel release H/O colonoscopy Family History (Updated 11/08/23 @ 09:46 by Mimi Mckeon MA) Daughter Alcohol abuse Substance abuse Mother High blood pressure Diabetes Cardiovascular disease Sister High cholesterol Paternal Grandfather Diabetes Father Cardiovascular disease Social History Housing: House Patient Tobacco Use Status: Former Tobacco user e-Cigarette/Vaping Use: Never Used Second Hand Smoke Exposure: No service: No Current occupational status: employed 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 Current occupational exposures/hazards: No Cognitive needs: No Hearing needs: No Vision needs: Yes Assessment & Plan Assessment & Plan (1) Diabetes: Code(s): E11.9 - Type 2 diabetes mellitus without complications Category: Medical Plan: Wt: 100 Kg ( 111/ ) Est kcal needs as per MSJ: 1800 (40% carb, 30% protein/fat) Est fluid needs as per 25-30 ml/d: 3000 Est prot per day as per 1 g/kg bw: 100 Recommend fiber intake : 8-10 g per day and gradually increase to 25-28 g per day for women and 35-38 g for men or as tolerated Recommend sodium intake per day : less than 1500 mg less than 2000 mg Educated patient on: ( R = reviewed V = verbalizes understanding N/R = needs review N/A = not applicable Food sources of carbohydrate, adequate serving sizes and its role in various health conditions: R Differences between complex carbohydrates a simple carbohydrates, role of fiber in diet: R V N/R Lean protein sources of foods: R Differences between types of fats and role in diet (mono on saturated fat fatty acids, saturated fatty acids, trans fats): R V N/R Food sources of sodium in salt and healthy modifications for heart health in kidney health: R V R/V Vitamins and minerals: R V N/R Healthy plate method concept: R V N/R Physical activity: Benefits a precaution: R V N/R Hypoglycemia protocol (rule of 15): R V N/R Dietary prevention of Hyperglycemia: R Patient Instructions: Have yogurt with nuts as bedtime snack reducing total carbs to 20 g or less Coding Level of Care Code Nutr Indiv Intake (99084) Diagnoses Diabetes E11.9 Time Spent (min) 30
[2024-03-12 13:57] VITALS: BMI 36.8
== END 2024-03-12 11:23 | disposition home or self-care (01) ==
PROVIDERS: PCP Nurse Practitioner Family; Visit Provider Dietitian, Registered
DX: E11.9 Type 2 diabetes mellitus without complications (principal)

== ENCOUNTER → 2024-03-12 10:14 | Outpatient (BNVA) | payer OTHER, SELFPAY | PROVIDERS: PCP Nurse Practitioner Family; Visit Provider Dietitian, Registered | DX: E11.9 Type 2 diabetes mellitus without complications (principal); Z71.3 Dietary counseling and surveillance | CPT/HCPCS: 97802 ==